=== PATIENT | female | born 1980 | race Caucasian/White ===

== ENCOUNTER → 2017-01-26 | Outpatient (CLI) | payer BC ==
[~2017-01-26] MED LIST: LEVO50TA6 PO; PRENTAB26 PO
== END | disposition home or self-care (01) ==
LOC: C.LAB1850 10:33
PROVIDERS: ATTEND Obstetrics & Gynecology
DX: E03.9 Hypothyroidism, unspecified (principal)

== ENCOUNTER → 2017-11-13 | Outpatient (CLI) | payer OTHER | END | disposition home or self-care (01) | LOC: C.PAPS 08:05 | PROVIDERS: ATTEND Obstetrics & Gynecology | DX: Z12.4 Encounter for screening for malignant neoplasm of cervix (principal) ==

== ENCOUNTER → 2017-11-13 | Outpatient (CLI) | payer OTHER | END | disposition home or self-care (01) | LOC: C.LAB1850 13:54 | PROVIDERS: ATTEND Obstetrics & Gynecology | DX: E03.9 Hypothyroidism, unspecified (principal) ==

== ENCOUNTER → 2017-12-14 | Outpatient (CLI) | payer OTHER ==
[2017-12-14 12:33] LABS: HEMATOCRIT 37.6 % (37-47); MEAN CELL VOLUME 91.3 fL (80-100); MEAN CORPUSCULAR HEMOGLOBIN 31.6 pg (25-34); MEAN CORPUSCULAR HGB CONC 34.6 g/dl (32-36); MEAN PLATELET VOLUME 10.7 fL (7.4-10.4); PLATELET COUNT 263 K/uL (130-400); RED CELL DISTRIBUTION WIDTH CV 13.4 % (11.5-14.5); RED CELL DISTRIBUTION WIDTH SD 44.2 fL (36.4-46.3); WHITE BLOOD COUNT 6.03 K/uL (4.8-10.8)
[2017-12-14 12:49] LABS: PROLACTIN 7.29 ng/mL
[2017-12-14 13:28] LABS: HEP C IGG 13 YRS+OLDER_RFLX NEG (NEG)
== END | disposition home or self-care (01) ==
LOC: C.LAB1850 10:02
PROVIDERS: ATTEND Specialist
DX: Z31.41 Encounter for fertility testing (principal); Z01.83 Encounter for blood typing; Z11.59 Encounter for screening for other viral diseases; Z11.3 Encounter for screening for infections with a predominantly sexual mode of transmission; Z11.4 Encounter for screening for human immunodeficiency virus [HIV]; Z13.0 Encounter for screening for diseases of the blood and blood-forming organs and certain disorders involving the immune mechanism; Z13.21 Encounter for screening for nutritional disorder

== ENCOUNTER → 2018-02-05 | Outpatient (CLI) | payer OTHER ==
[2018-02-05 10:09] LABS: FOLLICLE STIMULAT HORMONE 6.35 IU/L; LUTEINIZING HORMONE 4.69 IU/L
== END | disposition home or self-care (01) ==
LOC: C.LAB1850 08:54
PROVIDERS: ATTEND Specialist
DX: Z31.41 Encounter for fertility testing (principal); O99.280 Endocrine, nutritional and metabolic diseases complicating pregnancy, unspecified trimester; E03.9 Hypothyroidism, unspecified; O09.00 Supervision of pregnancy with history of infertility, unspecified trimester

== ENCOUNTER → 2018-02-27 | Outpatient (CLI) | payer OTHER | END | disposition home or self-care (01) | LOC: C.LAB1850 09:16 | PROVIDERS: ATTEND Specialist | DX: Z31.41 Encounter for fertility testing (principal) ==

== ENCOUNTER → 2018-03-08 | Outpatient (CLI) | payer OTHER ==
[2018-03-08 11:41] LABS: LUTEINIZING HORMONE 5.57 IU/L
== END | disposition home or self-care (01) ==
LOC: C.LAB1850 10:44
PROVIDERS: ATTEND Specialist
DX: Z31.41 Encounter for fertility testing (principal)

== ENCOUNTER → 2018-03-12 | Outpatient (CLI) | payer OTHER ==
[2018-03-12 10:47] LABS: LUTEINIZING HORMONE 8.19 IU/L
== END | disposition home or self-care (01) ==
LOC: C.LAB1850 09:18
PROVIDERS: ATTEND Specialist
DX: Z31.41 Encounter for fertility testing (principal)

== ENCOUNTER → 2018-05-31 | Outpatient (CLI) | payer OTHER | END | disposition home or self-care (01) | LOC: C.LAB1850 09:41 | PROVIDERS: ATTEND Specialist | DX: O09.00 Supervision of pregnancy with history of infertility, unspecified trimester (principal); Z3A.00 Weeks of gestation of pregnancy not specified ==

== ENCOUNTER → 2018-06-05 | Outpatient (CLI) | payer OTHER ==
[2018-06-05 13:08] LABS: BASO ABS # 0.05 K/uL (0-0.2); EOS ABS # 0.16 K/uL (0-0.5); HEMATOCRIT 38.7 % (37-47); HEMOGLOBIN 13.2 g/dL (12.0-16.0); IG# 0.01 K/uL (0.00-0.02); LYMPH % 34.4 %; LYMPH ABS # 1.81 K/uL (1.2-3.4); MEAN CELL VOLUME 89.8 fL (80-100); MEAN CORPUSCULAR HEMOGLOBIN 30.6 pg (25-34); MEAN CORPUSCULAR HGB CONC 34.1 g/dl (32-36); MONO % 7.8 %; MONO ABS # 0.41 K/uL (0.11-0.59); NEUT % 53.6 %; NEUT ABS # 2.82 K/uL (1.4-6.5); PLATELET COUNT 285 K/uL (130-400); RED CELL DISTRIBUTION WIDTH CV 12.8 % (11.5-14.5); RED CELL DISTRIBUTION WIDTH SD 41.7 fL (36.4-46.3); WHITE BLOOD COUNT 5.26 K/uL (4.8-10.8)
[2018-06-05 13:42] LABS: ALBUMIN 3.6 gm/dl (3.4-5.0); ALKALINE PHOSPHATASE 44 U/L (45-117); ALT/SGPT 19 U/L (12-78); AST/SGOT 12 U/L (15-37); BLOOD UREA NITROGEN 15 mg/dl (7-18); CALCIUM 8.8 mg/dl (8.5-10.1); CARBON DIOXIDE 25 mmol/L (21-32); CREATININE 0.69 mg/dl (0.60-1.20); GLUCOSE 78 mg/dl (70-99); POTASSIUM 3.9 mmol/L (3.5-5.1); SODIUM 138 mmol/L (136-145); TOTAL PROTEIN 7.8 gm/dl (6.4-8.2)
== END | disposition home or self-care (01) ==
LOC: C.LAB1850 09:35
PROVIDERS: ATTEND Obstetrics & Gynecology
DX: Z01.812 Encounter for preprocedural laboratory examination (principal)

== ENCOUNTER → 2018-06-12 | Outpatient (CLI) | payer OTHER | END | disposition home or self-care (01) | LOC: C.LAB1850 10:02 | PROVIDERS: ATTEND Specialist | DX: O09.00 Supervision of pregnancy with history of infertility, unspecified trimester (principal); Z3A.00 Weeks of gestation of pregnancy not specified ==

== ENCOUNTER → 2018-06-19 | Outpatient (CLI) | payer OTHER | END | disposition home or self-care (01) | LOC: C.LAB1850 10:53 | PROVIDERS: ATTEND Specialist | DX: O09.00 Supervision of pregnancy with history of infertility, unspecified trimester (principal) ==

== ENCOUNTER → 2018-06-25 | Outpatient (CLI) | payer OTHER | END | disposition home or self-care (01) | LOC: C.LAB1850 09:55 | PROVIDERS: ATTEND Specialist | DX: O09.00 Supervision of pregnancy with history of infertility, unspecified trimester (principal) ==

== ENCOUNTER → 2018-07-02 | Outpatient (CLI) | payer OTHER | END | disposition home or self-care (01) | LOC: C.LAB1850 09:12 | PROVIDERS: ATTEND Specialist | DX: O09.00 Supervision of pregnancy with history of infertility, unspecified trimester (principal) ==

== ENCOUNTER 2021-07-21 07:47 | Inpatient (IN) ==
[2021-07-21] MEDS ORDERED: OXYTOCIN 30 UNITS/500 ML BAG IV PRN ×4 (08:07→16:59)
[2021-07-21 08:37] LABS: Hematocrit (blood only) 35.8 % (37-47); Hemoglobin 12.4 g/dL (12.0-16.0); Mean Corpuscular Hemoglobin 32.7 pg (25-34); Mean Corpuscular Hgb Conc 34.6 g/dL (32-36); Mean Corpuscular Volume 94.5 fL (80-100); Mean Platelet Volume 10.6 fL (7.4-10.4); Platelet Count 216 K/uL (130-400); RDW Coefficient of Variation 13.3 % (11.5-14.5); Red Blood Count 3.79 M/uL (4.2-5.4); White Blood Count 11.17 K/uL (4.8-10.8)
[2021-07-21] MEDS: LACTATED RINGER'S 1,000 ML IV PRN ×2 (09:30→15:04)
--- NOTE | 2021-07-21 13:35 | Labor Progress Brief Note ---
Date of Service July 21, 2021 Subjective Reason For Note: Routine Evaluation Assessment & Plan (1) Supervision of elderly multigravida: Plan: 40yo at 38.1 weeks GA. IOL at 38 weeks per M recommendation 1. Fetus: Cat 1 2. Labor: Progressing, Continue Pitocin, AROM clr 3. Vitals: WNL 4. GBS negative (2) Hypothyroidism affecting : (3) , supervision, high-risk: (4) Autoimmune disorder: Admission and Anticipated Discharge Date Admission Date: July 21, 2021 Physical Exam Genitourinary: Manual OB Exam: + cervical dilation 3 cm, + cervical effacement 70%, + station -2 and + amniotic fluid clear OB Exam Monitor Tracing: + external FHT monitor used, + external uterine monitor used, + category I and + normal FHT variability; no early decelerations present, no late decelerations present and no variable decelerations Results & Data ([facility]) Vital Signs (Past 12 Hours) Vital Signs Temp Pulse Resp BP 07/21/21 13:20 37.2 C 18 07/21/21 12:56 72 122/67 07/21/21 11:58 71 106/58 L 07/21/21 11:09 36.6 C 67 18 105/61 07/21/21 09:31 75 105/67 07/21/21 08:15 37.0 C 18 07/21/21 07:54 73 109/68 Coding Level of Care Code None Diagnoses Supervision of elderly multigravida O09.529 Hypothyroidism affecting O99.280; E03.9 , supervision, high-risk O09.90 Autoimmune disorder D89.89
[2021-07-21] MEDS ORDERED: fentaNYL citrate 100 MCG/2 ML VIAL ONE (15:12)
[2021-07-21] MEDS ORDERED: ePHEDrine sulfate 50 MG/ML AMP ONE (15:12)
[2021-07-21] MEDS ORDERED: SODIUM CHLORIDE 0.9% INJ 10 ML VIAL ONE (15:12)
[2021-07-21] MEDS ORDERED: BUPIVACAINE 0.25% 30 ML VIAL ONE (15:12)
[2021-07-21] MEDS ORDERED: fentaNYL 2MCG/ML ROPIVACAINE 1.25MG/ML 100 ML BAG EPI ONE (15:12)
[2021-07-21] MEDS ORDERED: diphenhydrAMINE 50 MG/ML VIAL IV PRN (15:17)
[2021-07-21] MEDS ORDERED: ePHEDrine sulfate 50 MG/ML AMP IV PRN (15:17)
[2021-07-21] MEDS ORDERED: fentaNYL 2MCG/ML ROPIVACAINE 1.25MG/ML 100 ML BAG EPI PRN (15:17)
[2021-07-21] MEDS ORDERED: NALOXONE HCL 0.4 MG/1 ML VIAL/CARP IV PRN (15:17)
[2021-07-21] MEDS ORDERED: NALBUPHINE HCL INJ 10 MG/ML AMP IV PRN (15:17)
[2021-07-21] MEDS ORDERED: NALOXONE HCL 1 MG in SODIUM CHLORIDE 0.9% 1000ML 1,000 ML IV PRN (15:17)
[2021-07-21] MEDS ORDERED: ONDANSETRON INJ 2 MG/ML 2 ML VIAL IV PRN (15:17)
--- NOTE | 2021-07-21 15:18 | Anesthesiology Consultation ---
Date of Service July 21, 2021 Assessment & Plan Chart Review Chart Review: Patient NOT seen in Pre Admission Testing and Acceptable Risk for Labor Epidural Consults Requested none ASA ASA2 Proposed Anesthesia Anesthesia Type: Labor Epidural and CSE Risk / Benefits Reviewed With: PT / POA / Parent / Guardian, Accepts Plan and Informed Consent Obtained History Height/Weight Height: 5 ft 4 in Weight: 70.307 kg Allergies Allergy/AdvReac Type Severity Reaction Status Date / Time No Known Drug Allergies Allergy Unknown Unknown Verified 07/21/21 07:57 Medications Home Medications Medication Instructions Recorded Confirmed Last Taken cholecalciferol (vitamin D3) 50 2,000 unit PO QAM #1 cap 05/28/19 07/21/21 07/20/21 mcg (2,000 unit) capsule epinephrine 0.3 mg/0.3 mL 0.3 mg IM .INJECT 0.3ML INTRAMU 05/28/19 07/21/21 Unk nown injection, auto-injector PRN #1 ea hydroxychloroquine 200 mg tablet 200 mg PO BID tab 07/01/19 07/21/21 07/19/21 (Plaquenil) acetylcysteine 600 mg capsule (NAC) 600 mg PO QAM 03/10/20 07/21/21 07/19/21 inositol 500 mg tablet 500 mg PO QAM 03/10/20 07/21/21 07/19/21 levothyroxine 100 mcg tablet 162.5 mcg PO QAM 03/10/20 07/21/21 07/21/21 (Synthroid) prenat.vits,berna,pyx-[id number]-kbmcs 1 tab PO QAM 03/10/20 07/21/21 07/20/21 selenium 200 mcg capsule 200 mcg PO PM 03/10/20 07/21/21 07/20/21 ascorbic acid (vitamin C) 1,000 caplet PO DAILY 12/28/20 07/21/21 07/20/21 aspirin 81 mg tablet,delayed 81 mg PO DAILY 12/28/20 07/21/21 07/19/21 release (Adult Low Dose Aspirin) coenzyme Q10 [Co Q-10] 100 mg PO DAILY 12/28/20 07/21/21 07/19/21 omega-3 fatty acids 1,000 mg 1,000 mg PO DAILY 12/28/20 07/21/21 07/20/21 capsule (Fish Oil Concentrate) vitamin B complex 1 cap PO DAILY 12/28/20 07/21/21 07/20/21 prednisone 10 mg tablet 10 mg PO .qd tab 02/17/21 07/21/21 07/20/21 fat emulsion 20 % intravenous 100 ml IV .COMPLEX #100 ml 04/21/21 07/21/21 09:00 (Intralipid) vitamin E succinate PO 06/01/21 07/20/21 07/20/21 heparin, porcine (PF) 5,000 5,000 unit SUBCUT Q12H 07/14/21 07/21/21 07/19/21 unit/0.5 mL subcutaneous syringe Active Medications Generic Name Dose Route Start Last Admin Trade Name Freq PRN Reason Stop Dose Admin Oxytocin 30 units in 500 mls @ 5 mls/hr 07/21/21 08:07 07/21/21 10:35 Pitocin IV 07/23/21 08:06 0.3 units/hr .Q24H PRN 5 mls/hr Labor Induction/Augmentation Titration Protocol 0.3 UNITS/HR Lactated Ringer's 1,000 mls @ 125 mls/hr 07/21/21 08:07 07/21/21 14:42 Lr IV 07/23/21 08:06 999 mls/hr .Q8H PRN Infusion L&D Protocol Protocol NPO Date Last Intake of Fluids: 07/21/21 Time Last Intake of Fluids: 14:00 Date Last Intake of Solids: 07/21/21 Time Last Intake of Solids: 07:30 Past Medical History Medical History Acne Clotting disorder GETS CLOTS FOLLOWING D&C'S> NO SPECIFIC DISORDER DX> FOLLOWS Female infertility GERD (gastroesophageal reflux disease) History of in vitro fertilization History of multiple miscarriages Left breast lump benign 2020 Missed Subclinical hypothyroidism Exercise / Class Metabolic Activity II 4-5 Yardwork/Stairs/Walk up hill Past Family History Family History Aunt Breast cancer Brother Hypertension Grandmother Hypertension Stroke Grandfather Hypertension Heart disease Cancer Denies family history of Ovarian cancer Prostate cancer Myocardial infarction Colorectal cancer Past Surgical History Surgical History H/O dilation and curettage History of colposcopy History of tooth extraction Hx of exploratory laparotomy Hx of surgical procedure HX 2 EGG EXTRACTIONS FOR IVF Past Anesthesia History No Hx of Anesthesia Complications and No Family Hx of Anesthesia Complications History of PONV No Hx of PONV and No Hx of Motion Sickness Social History Smoking Status: Never smoker Hx Alcohol Use: No Alcohol type: wine alcohol intake frequency: a few times a week Hx Substance Use: No substance use type: does not use Review of Systems no chest pain or sob Physical Exam Vital Signs Last Vital Signs Temp 37.2 C 07/21/21 13:20 Pulse 71 07/21/21 15:15 Resp 18 07/21/21 13:20 BP 113/64 07/21/21 14:07 Pulse Ox 98 07/21/21 15:15 ENMT Mouth: no TMJ abnormality Thyromental Distance: > or= 3.5 Finger Breadths Mallampati Class: II Neck normal visual inspection Respiratory normal respiratory effort Auscultation: lungs clear to auscultation bilaterally Cardiovascular Rate/Rhythm: regular rate and regular rhythm Musculoskeletal Spine: normal cervical ROM Neurologic moves all extremities Psychiatric Orientation: alert and oriented x 3 Testing Laboratory Results 07/21/21 08:27
[2021-07-21] MEDS ORDERED: DIPHTHERIA/TETANUS/PERTUSSIS 0.5 ML SYR/VIAL IM ONE (16:25)
[2021-07-21] MEDS ORDERED: HYDROCORTISONE ACETATE 25 MG SUPP PR PRN (16:25)
[2021-07-21] MEDS ORDERED: ACETAMINOPHEN 325 MG TAB PO PRN (16:25)
[2021-07-21] MEDS ORDERED: bisacodyL 10 MG SUPP PR PRN (16:25)
[2021-07-21] MEDS ORDERED: BENZOCAINE 20% AER SPR 82.5 GM CAN EXT PRN (16:25)
[2021-07-21] MEDS ORDERED: SUPERCREAM 0.870% 15 GM JAR EXT PRN (16:25)
--- NOTE | 2021-07-21 17:13 | Delivery Summary ---
DATE OF PROCEDURE: 07/21/2021. PROCEDURE: Normal spontaneous vaginal delivery with first-degree perineal laceration repair and left labial laceration repair. SURGEON: Steven Rees MD. PREOPERATIVE DIAGNOSES: 1. Single intrauterine at 38 weeks 1 day gestational age. 2. Hypothyroidism. 3. Suspected autoimmune disorder. 4. Advanced maternal age. POSTOPERATIVE DIAGNOSES: 1. Single intrauterine at 38 weeks 1 day gestational age. 2. Hypothyroidism. 3. Suspected autoimmune disorder. 4. Advanced maternal age. 5. Status post delivery. ESTIMATED BLOOD LOSS: 200 mL. DRAINS: None. FLUIDS: Continuous lactated Ringer. URINE OUTPUT: Not measured. COMPLICATIONS: None. FINDINGS: Viable male with weight pending and Apgars of 9 and 9 at one and five minutes respe ctively. INDICATIONS: The patient is a 40-year-old G6, P1, admitted at 38 weeks 1 day gestational age for ye ction of labor per [facility] recommendation. The patient was initially found to be 2 cm dilated, started o n oxytocin per regular protocol. She underwent artificial rupture of membranes for thin meconium and received epidural for anesthesia. She progressed quickly to complete-complete, +2 station, pushed f or approximately 10 minutes or less to achieve delivery. DETAILS OF PROCEDURE: The patient progressed to 10 cm dilated, 100% effaced, positive 2 station, pus hed over intact perineum with epidural anesthesia, delivered a viable male infant, weight and Apgars as noted above. Head of the delivered in MEAGAN position, restituted to right transverse. A lo ose nuchal cord was noted, which was easily reduced. Body and shoulders quickly followed. w as noted to be vigorous soon after delivery and a 1 minute delayed cord clamping was initiated. Cord was then double clamped and cut. remained on maternal abdomen. Cord blood was obtained. A ttention was then turned to delivery of placenta, which was delivered intact, 3-vessel cord, gentle c ord traction. Inspection of the perineum, vagina, cervix was noted to be a left labial laceration an d a first-degree perineal laceration. These were all repaired with interrupted stitch of 3-0 Vicryl. Needle, sponge, and instrument counts were correct at the completion of the case with mother and ne maria luz were stable in immediate post-delivery period. Job ID: [id number]
--- NOTE | 2021-07-21 19:37 | Anesthesia Procedure Note ---
Date of Service July 21, 2021 Anesthesia Post Epidural Note Vital Signs Vital Signs: Temp Pulse Resp BP Pulse Ox 37.0 C 100 H 20 112/71 99 07/21/21 18:20 07/21/21 18:31 07/21/21 18:20 07/21/21 18:31 07/21/21 16:20 Pain Intensity Abdomen: Pain Intensity: 2 Notes Mental Status: alert / awake / arousable and participated in evaluation Nausea / Vomiting: adequately controlled Pain: adequately controlled Airway Patency, RR, SpO2: stable & adequate BP & HR: stable & adequate Hydration State: stable & adequate Neuraxial Anesthesia: was administered and sensory block is resolving Anesthetic Complications: no major complications apparent and Pt Satisfied with anesthetic care Epidural: Removed without complications and With tip intact
[2021-07-21] MEDS: DOCUSATE SODIUM 100 MG CAP PO SCH (20:56)
[2021-07-22] MEDS: IBUPROFEN 600 MG TAB PO PRN ×3 (00:10→09:11)
--- NOTE | 2021-07-22 07:46 | Obstetrical Progress Note ---
Date of Service July 22, 2021 Assessment & Plan (1) Encounter for care and examination after delivery: 40yo Day 1 S/p . Doing well. Discharge after 24hr PP Subjective Ambulation: ambulating normally Voiding: no voiding problems Passing Gas:: Yes Diet Tolerance:: regular diet Lochia:: Moderate Feeding Type:: breast feeding Physical Exam Constitutional WD/WN, vitals as above Respiratory normal respiratory effort; no respiratory distress and no labored breathing Gastrointestinal (Abdomen) Inspection/Auscultation: abdomen normal to inspection; abdomen not distended Percussion/Palpation: abdomen soft; abdomen nontender, no guarding and abdomen not rigid Genitourinary OB Exam Abdomen: + fundal height Fundus: + firm and + relation to umbilicus (Below); not tender or not boggy Results & Data ([facility]) Vital Signs (Past 12 Hours) Vital Signs Temp Pulse Resp BP 07/22/21 04:15 36.6 C 77 18 102/65 07/22/21 00:10 36.8 C 85 18 107/70
[2021-07-22] MEDS ORDERED: FERROUS SULFATE 325 MG TAB PO SCH (08:00)
[2021-07-22] MEDS ORDERED: PRENATAL VITAMIN 1 TAB PO SCH (08:00)
[2021-07-22] MEDS: DOCUSATE SODIUM 100 MG CAP PO SCH (08:43)
[2021-07-22] MEDS ORDERED: bisacodyL 5 MG TABEC PO SCH (20:00)
== END 2021-07-22 17:45 | disposition home or self-care (01) | DRG 807 ==
LOC: 4S1 07:47 → 4S2 18:45